=== PATIENT | male | born 1990 | race Caucasian/White ===

== ENCOUNTER 2017-12-28 02:12 | Inpatient (IN) | payer BC, OTHER ==
--- NOTE | 2017-12-28 01:59 | HP ---
COWS - Scale Resting Pulse: 0= [place] 80 or Below Sweatin=Flushed/Facial Moisture Restless Observation: 1= Difficult to Sit Still Pupil Size: 1= Pupils >than Normal Bone or Joint Aches: 4=Acute Joint/Muscle Pain Runny Nose/ Eye Tearin= Runny Nose/Eyes GI Upset > 30mins: 2= Nausea/Diarrhea (diarrhea x 3) Tremor Observation: 2= Slight Tremor Visible Yawning Observation: 1= 1-2x During Session Anxiety or Irritability: 1=Feels Anxious/Irritable Goose Flesh Skin: 0=Smooth Skin COWS Score: 16 Admission ROS [facility] Chief Complaint: Heroin and benzodiazepine withdrawal symptoms Allergies/Adverse Reactions: Allergies Allergy/AdvReac Type Severity Reaction Status Date / Time Penicillins AdvReac Severe Hives Verified 11/11/13 19:39 History of Present Illness: 27 years old male with a 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 Patient has been to previous detox and insignificant period of sobriety. He has medical history of depression, anxiety and Hep. C. He denies suicide attempt an suicidal ideation at this time Exam Limitations: No Limitations - Ebola screening Have you traveled outside of the country in the last 21 days: No Have you had contact with anyone from an Ebola affected area: No Have you been sick,other than usual withdrawal symptoms: No Do you have a fever: No - Review of Systems Constitutional: Chills, Loss of Appetite, Malaise, Changes in sleep EENT: reports: Other (30% hearing loss left ear) Respiratory: reports: No Symptoms reported Cardiac: reports: No Symptoms Reported GI: reports: Diarrhea, Nausea, Poor Appetite, Vomiting, Abdominal cramping : reports: No Symptoms Reported Musculoskeletal: reports: Back Pain, Muscle Pain, Neck Pain Integumentary: reports: Dryness Neuro: reports: Headache, Tingling Endocrine: reports: No Symptoms Reported Hematology: reports: No Symptoms Reported Psychiatric: reports: Agitated, Anxious Other Systems: Reviewed and Negative Patient History - Patient Medical History Hx Anemia: No Hx Asthma: No Hx Chronic Obstructive Pulmonary Disease (COPD): No Hx Cancer: No Hx Cardiac Disorders: No Hx Congestive Heart Failure: No Hx Hypertension: No Hx Hypercholesterolemia: No Hx Pacemaker: No HX Cerebrovascular Accident: No Hx Seizures: No Hx Diabetes: No Hx Gastrointestinal Disorders: No Hx Genitourinary Disorders: No Hx Sexually Transmitted Disorders: No Hx Renal Disease (ESRD): No Hx Thyroid Disease: No Hx Human Immunodeficiency Virus (HIV): No (Negative 2018) Hx Hepatitis C: Yes (Not on medication) Hx Depression: No Hx Suicide Attempt: No (Denies suicide attempt and suicidal ideation now) Hx Bipolar Disorder: No Hx Schizophrenia: No Other Medical History: Anxiety - Not n medication - Patient Surgical History Past Surgical History: Yes Hx Neurologic Surgery: No Hx Cataract Extraction: No Hx Cardiac Surgery: No Hx Lung Surgery: No Hx Abdominal Surgery: No Hx Appendectomy: Yes (2000) Hx Cholecystectomy: No Hx Genitourinary Surgery: No Hx Section: No Other Surgical History: RT - 2000 Anesthesia Reaction: No - PPD History Previous Implant?: Yes Implanted On Prior [facility] Admission?: No Date: 11/13/13 PPD to be Administered?: Yes - Reproductive History Patient is a Female of Child Bearing Age (11 -55 yrs old): No (Male) - Smoking Cessation Smoking history: Current every day smoker Have you smoked in the past 12 months: Yes Aproximately how many cigarettes per day: 20 Hx Chewing Tobacco Use: No Initiated information on smoking cessation: Yes 'Breaking Loose' booklet given: 12/28/17 - Substance & Tx. History Hx Substance Use: Yes Substance Use Type: Cocaine, Heroin Hx Substance Use Treatment: Yes ([facility] Family Disease History - Family Disease History Family Disease History: Other: Mother (DEPENDENT ON ETOH AND RECOVERING) Admission Physical Exam [facility] - Physical General Appearance: Yes: Moderate Distress, Tremorous, Irritable, Sweating, Anxious HEENTM: Yes: EOMI, Normal ENT Inspection, Normocephalic, Normal Voice, SHAW Respiratory: Yes: Normal Breath Sounds, No Respiratory Distress Neck: Yes: Supple Breast: Yes: Breast Exam Deferred Cardiology: Yes: Regular Rhythm, Regular Rate Abdominal: Yes: Normal Bowel Sounds, Soft Genitourinary: Yes: Within Normal Limits Back: Yes: Normal Inspection Musculoskeletal: Yes: Back pain, Muscle Pain, Muscle weakness Extremities: Yes: Tremors Neurological: Yes: Within Normal Limits, Alert, Normal Mood/Affect Integumentary: Yes: Warm Lymphatic: Yes: Within Normal Limits - Diagnostic (1) Sedative, hypnotic or anxiolytic abuse with intoxication, uncomplicated Current Visit: No Status: Chronic (2) Cannabis dependence, uncomplicated Current Visit: No Status: Chronic (3) Anxiety Current Visit: No Status: Chronic (4) Depression Current Visit: No Status: Acute Qualifiers: Depression Type: unspecified Qualified Code(s): F32.9 - Major depressive disorder, single episode, unspecified (5) Hep C w/o coma, chronic Current Visit: No Status: Chronic (6) Cocaine dependence Current Visit: No Status: Chronic (7) Nicotine dependence Current Visit: No Status: Chronic Cleared for Admission [facility] - Detox or Rehab [facility] Level of Care: Medically Managed Detox Regimen/Protocol: Valium S Breath Alcohol Content Breath Alcohol Content: 0 Vital Signs - Vital Signs Vital Signs Refused: No Temperature: 96.1 F Temperature Source: Oral Pulse Rate: 74 Respiratory Rate: 16 BP Location: Left Arm Blood Pressure Position: Sitting - Height Height: 5 ft 9 in - Weight Weight: 155 lb Weight Measurement Method: Standing Scale Body Mass Index (BMI): 22.8 - Bowel Function Bowel Movement: Yes Urine Drug Screen - Test Device Lot Number: [id number] Expiration Date: 08/11/19
[~2017-12-28 02:12] MED LIST: ACETAMINOPHEN 325 MG TABLET (FP) PO PRN; IBUPROFEN 400 MG TABLET (FP) PO PRN; LOPERAMIDE HCL 2 MG CAPSULE PO PRN; MAG HYDROX/AL HYDROX/SIMETH 30 ML UNIT-DOSE CUP PO PRN; MAGNESIUM CITRATE 300 ML BOTTLE PO PRN; MAGNESIUM HYDROX 2400MG/30ML ORAL SUSPENSION 30 ML CUP PO PRN; MENTHOL/PHENOL 1 EACH UD MM PRN; P-EPHED 60MG/TRIPROLIDI 2.5MG TABLET PO PRN; diazePAM 5 MG TABLET PO ONE; guaiFENesin/D-METHORPHAN HB 10 ML UNIT-DOSE CUPS PO PRN
[2017-12-28 02:18] VITALS: BMI 22.8
[2017-12-28] MEDS: diazePAM 5 MG TABLET PO SCH ×3 (05:05→22:16)
[2017-12-28 09:57] LABS: URINE APPEARANCE CLEAR; URINE BILIRUBIN NEGATIVE (<2.0 mg/dL); URINE COLOR YELLOW; URINE GLUCOSE (UA) NEGATIVE (NEGATIVE); URINE KETONE NEGATIVE (NEGATIVE); URINE LEUK ESTERASE NEGATIVE (NEGATIVE); URINE NITRITE NEGATIVE (NEGATIVE); URINE PROTEIN NEGATIVE (NEGATIVE); URINE UROBILINOGEN 4.0 E.U/dl mg/dL (0.2-1.0)
[2017-12-28] MEDS: NICOTINE 14 MG/24 HOURS TOPICAL PATCH TD SCH (10:04)
[2017-12-28] MEDS: diazePAM 5 MG TABLET PO PRN (10:04)
[2017-12-28] MEDS: PRENATAL VITAMINS W/ FOLIC ACID TABLET (FP) PO SCH (10:04)
[2017-12-28] MEDS: NICOTINE POLACRILEX 2 MG GUM BC PRN ×2 (10:05→14:12)
--- NOTE | 2017-12-28 11:39 | CONSULT ---
[facility] Psychiatric Consult - Data Date of interview: 12/28/17 Admission source: [facility] Identifying data: Patient is a 27 year old single male, without kids, domiciled and currently employed. This is of multiple admissions for patient. Pt. admitted to for cocaine and opiate dependence. Substance Abuse History: - Smoking Cessation. Smoking history: Current every day smoker. Have you smoked in the past 12 months: Yes. Aproximately how many cigarettes per day: 20. Hx Chewing Tobacco Use: No. Initiated information on smoking cessation: Yes. 'Breaking Loose' booklet given: 12/28/17. - Substance & Tx. History. Hx Substance Use: Yes. Substance Use Type: Cocaine, Heroin. Hx Substance Use Treatment: Yes ([facility]) Medical History: Hep C, Appendenctomy, Right hand surgery Psychiatric History: Patient reports one psychiatric hospitalization approximately 5 years ago at [facility]. Pt. unable to recall which medication he was prescribed while hospitalized Pt. denies h/o OPD. Pt. denies h /o suicide attempt. Physical/Sexual Abuse/Trauma History: Denies. Mental Status Exam - Mental Status Exam Alert and Oriented to: Time, Place, Person Cognitive Function: Good Patient Appearance: Well Groomed Mood: Euthymic Affect: Mood Congruent Patient Behavior: Cooperative Speech Pattern: Appropriate Voice Loudness: Normal Thought Process: Intact, Goal Oriented Thought Disorder: Not Present Hallucinations: Denies Suicidal Ideation: Denies Homicidal Ideation: Denies Insight/Judgement: Poor Sleep: Fair Appetite: Fair Muscle strength/Tone: Normal Gait/Station: Normal Psychiatric Findings - Problem List ([place] 1, 2,3) (1) Sedative, hypnotic or anxiolytic abuse with intoxication, uncomplicated Current Visit: Yes Status: Acute (2) Cannabis dependence, uncomplicated Current Visit: Yes Status: Chronic (3) Cocaine dependence Current Visit: Yes Status: Chronic Qualifiers: Substance use status: uncomplicated Qualified Code(s): F14.20 - Cocaine dependence, uncomplicated (4) Substance induced mood disorder Current Visit: Yes Status: Suspected - Initial Treatment Plan Initial Treatment Plan: Psychoeducation provided. Detoxification in progress. Observation.
--- NOTE | 2017-12-28 11:46 | PN ---
[facility] COWS - Scale Resting Pulse: 0= [place] 80 or Below Sweatin= Chills/Flushing Restless Observation: 0= Sits Still Pupil Size: 0= Normal to Room Light Bone or Joint Aches: 2= Severe Diffuse Aches Runny Nose/ Eye Tearin= Runny Nose/Eyes GI Upset > 30mins: 2= Nausea/Diarrhea Tremor Observation of Outstretched Hands: 2= Slight Tremor Visible Yawning Observation: 2= >3x During Session Anxiety or Irritability: 2=Irritable/Anxious Goose Flesh Skin: 3=Piloerection COWS Score: 16 BHS Progress Note (SOAP) Subjective: Tremors, Sweating, Fatigue, H/A, Diarrhea. Objective: PATIENT A & O X 3, OBSERVED AMBULATING ON UNIT. NO ACUTE DISTRESS. 12/28/17 11:44 Vital Signs Temperature 95.6 F L 12/28/17 09:00 Pulse Rate 64 12/28/17 09:00 Respiratory Rate 18 12/28/17 09:00 Blood Pressure 100/63 12/28/17 09:00 O2 Sat by Pulse Oximetry (%) Laboratory Tests 12/28/17 08:00 Urine Color Yellow Urine Appearance Clear Urine pH 6.0 Ur Specific [place] 1.025 Urine Protein Negative Urine Glucose (UA) Negative Urine Ketones Negative Urine Blood Negative Urine Nitrite Negative Urine Bilirubin Negative Urine Urobilinogen 4.0 e.u/dl Ur Leukocyte Esterase Negative UA RESULTS NOTED. CBC, CMP, RPR RESULTS PENDING. Assessment: 12/28/17 11:45 WITHDRAWAL SYMPTOMS. Plan: CONTINUE DETOX. INCREASE DAILY PO FLUID INTAKE.
--- NOTE | 2017-12-28 11:59 | EKG ---
Test Reason : Blood Pressure : / mmHG Vent. Rate : 058 BPM Atrial Rate : 058 BPM P-R Int : 164 ms QRS Dur : 108 ms QT Int : 426 ms P-R-T Axes : 034 035 029 degrees QTc Int : 418 ms SINUS BRADYCARDIA OTHERWISE NORMAL ECG NO PREVIOUS ECGS AVAILABLE Confirmed by CLAIRE SWEET MD ([id number]) on 12/28/2017 11:59:11 AM Referred By: Confirmed By:CLAIRE SWEET MD
[2017-12-28] MEDS ORDERED: MELATONIN 5 MG TABLETS PO PRN (22:00)
[2017-12-28] MEDS: THIAMINE HCL 100 MG TABLET (FP) PO SCH (22:16)
[2017-12-29] MEDS: diazePAM 5 MG TABLET PO SCH ×3 (05:30→22:32)
[2017-12-29] MEDS: NICOTINE POLACRILEX 2 MG GUM BC PRN ×3 (05:39→17:20)
[2017-12-29 09:47] LABS: HEMATOCRIT 43.9 % (35.4-49); HEMOGLOBIN 15.1 GM/dL (11.7-16.9); MCH 30.3 pg (25.7-33.7); MCHC 34.3 g/dl (32.0-35.9); MEAN CELL VOLUME 88.3 fl (80-96); MEAN PLT VOLUME 7.8 fl (7.5-11.1); PLATELET COUNT 324 K/MM3 (134-434); RBC 4.97 M/mm3 (4.00-5.60); RDW 12.9 % (11.9-15.9); WHITE BLOOD COUNT 9.7 K/mm3 (4.0-10.0)
[2017-12-29] MEDS: diazePAM 5 MG TABLET PO PRN ×2 (10:05→15:25)
[2017-12-29] MEDS: PRENATAL VITAMINS W/ FOLIC ACID TABLET (FP) PO SCH (10:05)
[2017-12-29] MEDS: NICOTINE 14 MG/24 HOURS TOPICAL PATCH TD SCH (10:06)
[2017-12-29 10:54] LABS: ALBUMIN 3.6 g/dl (3.4-5.0); ANION GAP 8 (8-16); CALCIUM 8.7 mg/dL (8.5-10.1); CHLORIDE 105 mmol/L (98-107); CO2 28 mmol/L (21-32); POTASSIUM 4.4 mmol/L (3.5-5.1); SODIUM 141 mmol/L (136-145)
[2017-12-29 11:00] LABS: ALK PHOS 63 U/L (45-117); BILIRUBIN,TOTAL 0.7 mg/dL (0.2-1.0); BLOOD UREA NITROGEN 10 mg/dL (7-18); CREATININE 0.8 mg/dL (0.7-1.3); GLUCOSE,RANDOM 78 mg/dL (74-106); SGOT/AST 16 U/L (15-37); SGPT/ALT 35 U/L (12-78); TOT PROT 6.8 g/dl (6.4-8.2)
--- NOTE | 2017-12-29 13:40 | PN ---
[facility]HS COWS - Scale Resting Pulse: 0= [place] 80 or Below Sweatin= Chills/Flushing Restless Observation: 0= Sits Still Pupil Size: 0= Normal to Room Light Bone or Joint Aches: 2= Severe Diffuse Aches Runny Nose/ Eye Tearin= Runny Nose/Eyes GI Upset > 30mins: 1= Stomach Cramp Tremor Observation of Outstretched Hands: 0= None Yawning Observation: 2= >3x During Session Anxiety or Irritability: 2=Irritable/Anxious Goose Flesh Skin: 0=Smooth Skin COWS Score: 10 BHS Progress Note (SOAP) Subjective: Body Aches, Constipation, Anxious, Fatigue. Objective: PATIENT A & O X 3, OBSERVED AMBULATING ON UNIT. NO ACUTE DISTRESS. 12/29/17 13:37 Vital Signs Temperature 97.9 F 12/29/17 13:29 Pulse Rate 78 12/29/17 13:29 Respiratory Rate 16 12/29/17 13:29 Blood Pressure 118/77 12/29/17 13:29 O2 Sat by Pulse Oximetry (%) Laboratory Tests 12/28/17 12/29/17 12/29/17 08:00 07:12 07:12 WBC 9.7 RBC 4.97 Hgb 15.1 Hct 43.9 MCV 88.3 MCH 30.3 MCHC 34.3 RDW 12.9 Plt Count 324 MPV 7.8 Sodium 141 Potassium 4.4 Chloride 105 Carbon Dioxide 28 Anion Gap 8 BUN 10 D Creatinine 0.8 Creat Clearance w eGFR > 60 Random Glucose 78 Calcium 8.7 Total Bilirubin 0.7 D AST 16 ALT 35 Alkaline Phosphatase 63 Total Protein 6.8 Albumin 3.6 Urine Color Yellow Urine Appearance Clear Urine pH 6.0 Ur Specific [place] 1.025 Urine Protein Negative Urine Glucose (UA) Negative Urine Ketones Negative Urine Blood Negative Urine Nitrite Negative Urine Bilirubin Negative Urine Urobilinogen 4.0 e.u/dl Ur Leukocyte Esterase Negative LABS NOTED. Assessment: 12/29/17 13:39 WITHDRAWAL SYMPTOMS. Plan: CONTINUE DETOX. INCREASE DAILY PO FLUID INTAKE. PRN FLEXERIL PO FOR BODY ACHES / MUSCLE SPASMS.
[2017-12-29] MEDS: CYCLOBENZAPRINE HCL 10 MG TABLET (FP) PO PRN (17:18)
[2017-12-29] MEDS: THIAMINE HCL 100 MG TABLET (FP) PO SCH (22:32)
[2017-12-30] MEDS: diazePAM 5 MG TABLET PO PRN ×4 (05:55→20:30)
[2017-12-30] MEDS: CYCLOBENZAPRINE HCL 10 MG TABLET (FP) PO PRN ×2 (05:55→16:29)
[2017-12-30] MEDS: NICOTINE POLACRILEX 2 MG GUM BC PRN ×3 (07:00→20:30)
[2017-12-30] MEDS: diazePAM 5 MG TABLET PO SCH ×2 (10:13→22:34)
[2017-12-30] MEDS: PRENATAL VITAMINS W/ FOLIC ACID TABLET (FP) PO SCH (10:13)
[2017-12-30] MEDS: NICOTINE 14 MG/24 HOURS TOPICAL PATCH TD SCH (10:13)
--- NOTE | 2017-12-30 14:27 | PN ---
BHS Progress Note (SOAP) Subjective: Sweating, Fatigue, Anxious. Objective: PATIENT A & O X 3. NO ACUTE DISTRESS. 12/30/17 14:25 Vital Signs Temperature 96.6 F L 12/30/17 14:14 Pulse Rate 72 12/30/17 14:14 Respiratory Rate 18 12/30/17 14:14 Blood Pressure 113/76 12/30/17 14:14 O2 Sat by Pulse Oximetry (%) Laboratory Tests 12/28/17 12/29/17 12/29/17 08:00 07:12 07:12 WBC 9.7 RBC 4.97 Hgb 15.1 Hct 43.9 MCV 88.3 MCH 30.3 MCHC 34.3 RDW 12.9 Plt Count 324 MPV 7.8 Sodium 141 Potassium 4.4 Chloride 105 Carbon Dioxide 28 Anion Gap 8 BUN 10 D Creatinine 0.8 Creat Clearance w eGFR > 60 Random Glucose 78 Calcium 8.7 Total Bilirubin 0.7 D AST 16 ALT 35 Alkaline Phosphatase 63 Total Protein 6.8 Albumin 3.6 Urine Color Yellow Urine Appearance Clear Urine pH 6.0 Ur Specific [place] 1.025 Urine Protein Negative Urine Glucose (UA) Negative Urine Ketones Negative Urine Blood Negative Urine Nitrite Negative Urine Bilirubin Negative Urine Urobilinogen 4.0 e.u/dl Ur Leukocyte Esterase Negative RPR Titer 12/29/17 07:12 WBC RBC Hgb Hct MCV MCH MCHC RDW Plt Count MPV Sodium Potassium Chloride Carbon Dioxide Anion Gap BUN Creatinine Creat Clearance w eGFR Random Glucose Calcium Total Bilirubin AST ALT Alkaline Phosphatase Total Protein Albumin Urine Color Urine Appearance Urine pH Ur Specific [place] Urine Protein Urine Glucose (UA) Urine Ketones Urine Blood Urine Nitrite Urine Bilirubin Urine Urobilinogen Ur Leukocyte Esterase RPR Titer Nonreactive LABS NOTED. Assessment: 12/30/17 14:26 WITHDRAWAL SYMPTOMS. Plan: CONTINUE DETOX. INCREASE DAILY PO FLUID INTAKE. ENCOURAGE AMBULATION.
[2017-12-30] MEDS: THIAMINE HCL 100 MG TABLET (FP) PO SCH (22:34)
[2017-12-31] MEDS: CYCLOBENZAPRINE HCL 10 MG TABLET (FP) PO PRN ×2 (07:07→15:14)
[2017-12-31] MEDS: NICOTINE POLACRILEX 2 MG GUM BC PRN ×3 (07:08→18:44)
[2017-12-31] MEDS: diazePAM 5 MG TABLET PO SCH ×2 (10:15→22:57)
[2017-12-31] MEDS: PRENATAL VITAMINS W/ FOLIC ACID TABLET (FP) PO SCH (10:15)
[2017-12-31] MEDS: NICOTINE 14 MG/24 HOURS TOPICAL PATCH TD SCH (10:16)
--- NOTE | 2017-12-31 10:57 | PN ---
BHS Progress Note (SOAP) Subjective: PT REPORTS DETOX PROCEEDING WELL, MEDS EFFECTIVE FOR W/S. ALERT O X 3. Objective: 12/31/17 10:56 Vital Signs 12/31/17 12/31/17 12/31/17 03:30 06:05 06:30 Temperature 97.1 F L Pulse Rate 58 L Respiratory 16 16 18 Rate Blood Pressure 101/60 12/31/17 09:53 Temperature 96.6 F L Pulse Rate 84 Respiratory 18 Rate Blood Pressure 97/53 Laboratory Tests 12/28/17 12/29/17 12/29/17 08:00 07:12 07:12 WBC 9.7 RBC 4.97 Hgb 15.1 Hct 43.9 MCV 88.3 MCH 30.3 MCHC 34.3 RDW 12.9 Plt Count 324 MPV 7.8 Sodium 141 Potassium 4.4 Chloride 105 Carbon Dioxide 28 Anion Gap 8 BUN 10 D Creatinine 0.8 Creat Clearance w eGFR > 60 Random Glucose 78 Calcium 8.7 Total Bilirubin 0.7 D AST 16 ALT 35 Alkaline Phosphatase 63 Total Protein 6.8 Albumin 3.6 Urine Color Yellow Urine Appearance Clear Urine pH 6.0 Ur Specific [place] 1.025 Urine Protein Negative Urine Glucose (UA) Negative Urine Ketones Negative Urine Blood Negative Urine Nitrite Negative Urine Bilirubin Negative Urine Urobilinogen 4.0 e.u/dl Ur Leukocyte Esterase Negative RPR Titer 12/29/17 07:12 WBC RBC Hgb Hct MCV MCH MCHC RDW Plt Count MPV Sodium Potassium Chloride Carbon Dioxide Anion Gap BUN Creatinine Creat Clearance w eGFR Random Glucose Calcium Total Bilirubin AST ALT Alkaline Phosphatase Total Protein Albumin Urine Color Urine Appearance Urine pH Ur Specific [place] Urine Protein Urine Glucose (UA) Urine Ketones Urine Blood Urine Nitrite Urine Bilirubin Urine Urobilinogen Ur Leukocyte Esterase RPR Titer Nonreactive Assessment: 12/31/17 10:56 NAD Plan: CONTINUE DETOX
[2017-12-31] MEDS: THIAMINE HCL 100 MG TABLET (FP) PO SCH (22:57)
[2018-01-01] MEDS: CYCLOBENZAPRINE HCL 10 MG TABLET (FP) PO PRN (05:14)
[2018-01-01] MEDS: NICOTINE POLACRILEX 2 MG GUM BC PRN ×3 (05:14→12:14)
[2018-01-01 09:04] VITALS: BP 115/75; PULSE 96; TEMP 98.4
--- NOTE | 2018-01-01 09:07 | PN ---
BHS Progress Note (SOAP) Subjective: DETOX COMPLETED. ALERT O X 3 Objective: 01/01/18 09:06 Vital Signs 01/01/18 01/01/18 01/01/18 03:30 06:05 06:30 Temperature 97.6 F Pulse Rate 67 Respiratory 18 16 18 Rate Blood Pressure 110/67 01/01/18 09:03 Temperature 98.4 F Pulse Rate 96 H Respiratory 20 Rate Blood Pressure 115/75 Laboratory Tests 12/28/17 12/29/17 12/29/17 08:00 07:12 07:12 WBC 9.7 RBC 4.97 Hgb 15.1 Hct 43.9 MCV 88.3 MCH 30.3 MCHC 34.3 RDW 12.9 Plt Count 324 MPV 7.8 Sodium 141 Potassium 4.4 Chloride 105 Carbon Dioxide 28 Anion Gap 8 BUN 10 D Creatinine 0.8 Creat Clearance w eGFR > 60 Random Glucose 78 Calcium 8.7 Total Bilirubin 0.7 D AST 16 ALT 35 Alkaline Phosphatase 63 Total Protein 6.8 Albumin 3.6 Urine Color Yellow Urine Appearance Clear Urine pH 6.0 Ur Specific [place] 1.025 Urine Protein Negative Urine Glucose (UA) Negative Urine Ketones Negative Urine Blood Negative Urine Nitrite Negative Urine Bilirubin Negative Urine Urobilinogen 4.0 e.u/dl Ur Leukocyte Esterase Negative RPR Titer 12/29/17 07:12 WBC RBC Hgb Hct MCV MCH MCHC RDW Plt Count MPV Sodium Potassium Chloride Carbon Dioxide Anion Gap BUN Creatinine Creat Clearance w eGFR Random Glucose Calcium Total Bilirubin AST ALT Alkaline Phosphatase Total Protein Albumin Urine Color Urine Appearance Urine pH Ur Specific [place] Urine Protein Urine Glucose (UA) Urine Ketones Urine Blood Urine Nitrite Urine Bilirubin Urine Urobilinogen Ur Leukocyte Esterase RPR Titer Nonreactive Assessment: 01/01/18 09:07 MEDICALLY STABLE Plan: D/C PT TODAY
--- NOTE | 2018-01-01 09:10 | DS ---
[facility] Detox Discharge Summary Admission Date: 12/28/17 Discharge Date: 01/01/18 - History Present History: Cannabis Dependence, Cocaine Dependence, Sedative Dependence Additional Comments: DETOX COMPLETED. ALERT O X 3. PT REPORTS HAS A PMD DR. REYES IN [place], [place] FOR MEDICAL MANAGEMENT. REFERRED TO [facility] FOR [facility]ARE. Pertinent Past History: PLEASE SEE DX BELOW - Physical Exam Results Vital Signs: Vital Signs Temperature 98.4 F 01/01/18 09:03 Pulse Rate 96 H 01/01/18 09:03 Respiratory Rate 20 01/01/18 09:03 Blood Pressure 115/75 01/01/18 09:03 O2 Sat by Pulse Oximetry (%) Pertinent Admission Physical Exam Findings: WITHDRAWAL SX Laboratory Tests 12/28/17 12/29/17 12/29/17 08:00 07:12 07:12 WBC 9.7 RBC 4.97 Hgb 15.1 Hct 43.9 MCV 88.3 MCH 30.3 MCHC 34.3 RDW 12.9 Plt Count 324 MPV 7.8 Sodium 141 Potassium 4.4 Chloride 105 Carbon Dioxide 28 Anion Gap 8 BUN 10 D Creatinine 0.8 Creat Clearance w eGFR > 60 Random Glucose 78 Calcium 8.7 Total Bilirubin 0.7 D AST 16 ALT 35 Alkaline Phosphatase 63 Total Protein 6.8 Albumin 3.6 Urine Color Yellow Urine Appearance Clear Urine pH 6.0 Ur Specific [place] 1.025 Urine Protein Negative Urine Glucose (UA) Negative Urine Ketones Negative Urine Blood Negative Urine Nitrite Negative Urine Bilirubin Negative Urine Urobilinogen 4.0 e.u/dl Ur Leukocyte Esterase Negative RPR Titer 12/29/17 07:12 WBC RBC Hgb Hct MCV MCH MCHC RDW Plt Count MPV Sodium Potassium Chloride Carbon Dioxide Anion Gap BUN Creatinine Creat Clearance w eGFR Random Glucose Calcium Total Bilirubin AST ALT Alkaline Phosphatase Total Protein Albumin Urine Color Urine Appearance Urine pH Ur Specific [place] Urine Protein Urine Glucose (UA) Urine Ketones Urine Blood Urine Nitrite Urine Bilirubin Urine Urobilinogen Ur Leukocyte Esterase RPR Titer Nonreactive - Treatment Hospital Course: Detox Protocol Followed, Detoxed Safely, Responded well, Discharged Condition Good, Rehab Referral Accepted Patient has Accepted a Rehab Referral to: [facility] - Medication Discharge Medications: Ambulatory Orders NK [No Known Home Medication] 11/11/13 - Diagnosis (1) Sedative, hypnotic or anxiolytic abuse with intoxication, uncomplicated Current Visit: Yes Status: Acute (2) Cannabis dependence, uncomplicated Current Visit: Yes Status: Acute (3) Nicotine dependence Current Visit: Yes Status: Acute Qualifiers: Nicotine product type: cigarettes Substance use status: in withdrawal Qualified Code(s): F17.213 - Nicotine dependence, cigarettes, with withdrawal (4) Hep C w/o coma, chronic Current Visit: Yes Status: Chronic (5) Cocaine dependence Current Visit: Yes Status: Acute Qualifiers: Substance use status: uncomplicated Qualified Code(s): F14.20 - Cocaine dependence, uncomplicated - AMA Did Patient Leave Against Medical Advice: No
[2018-01-01] MEDS: PRENATAL VITAMINS W/ FOLIC ACID TABLET (FP) PO SCH (09:31)
[2018-01-01] MEDS: NICOTINE 14 MG/24 HOURS TOPICAL PATCH TD SCH (09:33)
[2018-01-01] MEDS ORDERED: diazePAM 5 MG TABLET PO SCH (10:00)
== END 2018-01-01 12:45 | disposition other institution (70) | DRG 774 ==
LOC: YASAS 02:12 → Y3N 02:18
PROVIDERS: ADMIT Family Medicine Addiction Medicine; ATTEND Family Medicine Addiction Medicine
PROC: HZ2ZZZZ Detoxification Services for Substance Abuse Treatment (ICD-10-PCS; principal; 2017-12-28)
DX: F13.230 Sedative, hypnotic or anxiolytic dependence with withdrawal, uncomplicated (principal); F14.20 Cocaine dependence, uncomplicated; F12.20 Cannabis dependence, uncomplicated; F17.213 Nicotine dependence, cigarettes, with withdrawal; F41.9 Anxiety disorder, unspecified; F32.9 Major depressive disorder, single episode, unspecified; F19.24 Other psychoactive substance dependence with psychoactive substance-induced mood disorder; B18.2 Chronic viral hepatitis C; Z88.0 Allergy status to penicillin
CPT/HCPCS: 36415; 80053; 81003; 85027; 86593; 93005; 93010

== ENCOUNTER 2023-12-20 11:08 | Inpatient (IN) | payer OTHER ==
[2023-12-20] MEDS ORDERED: BENZOCAINE/MENTHOL (CHLORASEPTIC ) LOZENGE MM PRN (12:02)
[2023-12-20] MEDS ORDERED: LOPERAMIDE HCL 2 MG CAPSULE PO PRN (12:02)
[2023-12-20] MEDS ORDERED: POLYETHYLENE GLYCOL (HEALTHYLAX) 3350 17 GM PACKET PO PRN (12:02)
[2023-12-20] MEDS ORDERED: IBUPROFEN 400 MG TABLET (FP) PO PRN (12:02)
[2023-12-20] MEDS ORDERED: BENZONATATE 200 MG CAPSULE PO PRN (12:02)
[2023-12-20] MEDS ORDERED: MAGNESIUM HYDROX 2400MG/30ML ORAL SUSPENSION 30 ML CUP PO PRN (12:02)
[2023-12-20] MEDS ORDERED: NALOXONE HCL 0.4 MG/ML VIAL IM PRN (12:02)
[2023-12-20] MEDS ORDERED: ACETAMINOPHEN 325 MG TABLET (FP) PO PRN (12:02)
[2023-12-20] MEDS ORDERED: DICYCLOMINE HCL 10 MG CAPSULE PO PRN (12:02)
[2023-12-20] MEDS ORDERED: guaiFENesin 600 MG TABLET.ER (FP) PO PRN (12:02)
[2023-12-20] MEDS ORDERED: NALOXONE (NARCAN) HCL 4 MG/0.1 ML SPRAY NS PRN (12:02)
[2023-12-20 12:25] VITALS: BMI 23.9
[2023-12-20] MEDS ORDERED: NICOTINE 14 MG/24 HOURS TOPICAL PATCH TD ONE (13:11)
[2023-12-20] MEDS ORDERED: PRENATAL VITAMINS W/ FOLIC ACID TABLET (FP) PO ONE (13:11)
[2023-12-20] MEDS: NICOTINE 14 MG/24 HOURS TOPICAL PATCH TD SCH (13:12)
[2023-12-20] MEDS: PRENATAL VITAMINS W/ FOLIC ACID TABLET (FP) PO SCH (13:12)
[2023-12-20] MEDS: diazePAM 5 MG TABLET PO PRN (14:59)
[2023-12-20] MEDS: diazePAM 5 MG TABLET PO SCH (17:31)
[2023-12-20] MEDS: THIAMINE 100 MG TABLET PO SCH (21:09)
[2023-12-20] MEDS: MELATONIN 5 MG TABLETS PO SCH (21:09)
[2023-12-21] MEDS: METHOCARBAMOL 500 MG TABLET PO PRN (10:14)
[2023-12-21 11:45] LABS: HEMATOCRIT 49.4 % (35.4-49); HEMOGLOBIN 16.3 GM/dL (11.7-16.9); MCH 28.6 pg (25.7-33.7); MEAN CELL VOLUME 86.7 fl (80-96); MEAN PLT VOLUME 7.8 fl (7.5-11.1); PLATELET COUNT 333 10^3/uL (134-434); RDW 12.3 % (11.9-15.9); WHITE BLOOD COUNT 7.3 K/mm3 (4.0-10.0)
[2023-12-21 12:05] LABS: CHLORIDE 108 mmol/L (98-107); POTASSIUM 4.4 mmol/L (3.5-5.1); SODIUM 141 mmol/L (136-145)
[2023-12-21 12:13] LABS: ALBUMIN 3.6 g/dl (3.4-5.0); ANION GAP 4 mmol/L (4-13); BLOOD UREA NITROGEN 15.6 mg/dL (7-18); CALCIUM 9.1 mg/dL (8.5-10.1); CO2 29 mmol/L (21-32); GLUCOSE,RANDOM 93 mg/dL (74-106)
[2023-12-21 12:14] LABS: SGPT/ALT 39 U/L (13-61)
[2023-12-21 12:15] LABS: BILIRUBIN,TOTAL 0.5 mg/dL (0.2-1); TOT PROT 6.5 g/dl (6.4-8.2)
[2023-12-21 12:16] LABS: ALK PHOS 61 U/L (45-117); CREATININE 0.8 mg/dL (0.55-1.3); SGOT/AST 17 U/L (15-37)
[2023-12-22] MEDS: diazePAM 5 MG TABLET PO SCH (05:47)
[2023-12-22] MEDS: hydrOXYzine PAMOATE 25 MG CAPSULE (FP) PO PRN (13:23)
[2023-12-22] MEDS: ONDANSETRON *ODT* 4 MG TABLET SL PRN (17:20)
[2023-12-22] MEDS: LACTULOSE 20 GM/30 ML UDC (FOR ORAL USE ONLY) PO SCH (17:20)
[2023-12-22] MEDS: IBUPROFEN 600 MG TABLET (FP) PO PRN (19:07)
[2023-12-22] MEDS: BISMUTH SUBSALICYLATE 524 MG/30 ML PO PRN (20:28)
[2023-12-23] MEDS: diazePAM 5 MG TABLET PO SCH (06:04)
[2023-12-23] MEDS: MAG HYDROX/AL HYDROX/SIMETH 30 ML UNIT-DOSE CUP PO PRN (19:34)
[2023-12-24] MEDS: diazePAM 5 MG TABLET PO ONE (06:11)
[2023-12-24 08:56] VITALS: BP 114/65; PULSE 82; RESP 18; TEMP 98
== END 2023-12-24 09:43 | disposition home or self-care (01) | DRG 774 ==
LOC: YASAS 11:08 → Y6N 12:19
PROVIDERS: ADMIT Allergy & Immunology; ATTEND Surgery
PROC: HZ2ZZZZ Detoxification Services for Substance Abuse Treatment (ICD-10-PCS; principal; 2023-12-20)
DX: F10.230 Alcohol dependence with withdrawal, uncomplicated (principal); F13.230 Sedative, hypnotic or anxiolytic dependence with withdrawal, uncomplicated; F14.20 Cocaine dependence, uncomplicated; F15.20 Other stimulant dependence, uncomplicated; F17.213 Nicotine dependence, cigarettes, with withdrawal; F19.282 Other psychoactive substance dependence with psychoactive substance-induced sleep disorder; F32.A Depression, unspecified; F41.9 Anxiety disorder, unspecified; B18.2 Chronic viral hepatitis C; R79.89 Other specified abnormal findings of blood chemistry; Z88.0 Allergy status to penicillin
CPT/HCPCS: 36415; 80053; 80305; 80307; 82140; 85027; 86780; 93005; 93010; Q0162